=== PATIENT | male | born 1990 | race Native Hawaiian/Other Pacific Islander ===

== ENCOUNTER 2020-01-08 13:03 | Outpatient (CLI) | payer BC, OTHER | END 2020-01-08 22:29 | disposition home or self-care (01) | LOC: LAB 13:03 | DX: U07.1 COVID-19 (principal) | CPT/HCPCS: 87635; G2023; U0002 ==

== ENCOUNTER 2020-09-02 08:38 | Emergency (ER) | payer BC ==
[~2020-09-02] VITALS: Ht 170.2 cm; Wt 59.9 kg
[2020-09-02 08:38] VITALS: TEMP 98.8
[2020-09-02 09:53] LABS: PLATELET COUNT 272 K/uL (142-355)
[2020-09-02 09:59] LABS: POTASSIUM 3.2 mmol/L (3.6-5.2)
[2020-09-02 11:30] VITALS: BP 103/56
== END 2020-09-02 11:55 | disposition home or self-care (01) ==
LOC: ED 08:38
PROVIDERS: Family Medicine
DX: F41.8 Other specified anxiety disorders (principal); E87.6 Hypokalemia; R06.4 Hyperventilation
CPT/HCPCS: 80053; 81000; 85027; 99283